=== PATIENT | female | born 2000 | race African-American/Black ===

== ENCOUNTER 2021-08-23 01:33 | Emergency (ER) | payer MEDICAID ==
[~2021-08-23] VITALS: Ht 167.6 cm; Wt 82.0 kg
[2021-08-23 01:44] VITALS: BP 109/45
== END 2021-08-23 02:50 | disposition home or self-care (01) ==
LOC: ER 01:33
DX: R43.0 Anosmia (principal); Z87.81 Personal history of (healed) traumatic fracture; Z20.822 Contact with and (suspected) exposure to COVID-19
CPT/HCPCS: 87426; 99283

== ENCOUNTER 2022-01-29 22:26 | Emergency (ER) | payer MEDICAID ==
[~2022-01-29] VITALS: Ht 165.1 cm; Wt 76.0 kg
[2022-01-29 23:21] VITALS: BP 110/59
[2022-02-07] MEDS ORDERED: DIF15 MT (00:40)
== END 2022-01-30 04:44 | disposition left against medical advice (07) ==
LOC: ER 22:40
DX: R10.9 Unspecified abdominal pain (principal); Z53.21 Procedure and treatment not carried out due to patient leaving prior to being seen by health care provider

== ENCOUNTER 2022-02-05 20:54 | Emergency (ER) | payer MEDICAID ==
[~2022-02-05] VITALS: Ht 165.1 cm; Wt 74.5 kg
[2022-02-05 21:12] VITALS: BP 128/75
[2022-02-06 03:39] LABS: CLARITY URINE CLOUDY (CLEAR); COLOR URINE YELLOW (YELLOW); KETONES URINE 1+ (NEGATIVE); LEUKOCYTE ESTERASE URINE 3+ (NEGATIVE); NITRITE URINE NEGATIVE (NEGATIVE); OCCULT BLOOD URINE NEGATIVE (NEGATIVE); PROTEIN URINE TRACE (NEGATIVE); SPECIFIC GRAVITY URINE 1.024 (1.005-1.030)
[2022-02-06] MEDS ORDERED: NITR-87 MT (03:55)
[2022-02-07] MEDS ORDERED: DIF15 MT (00:40)
[2022-02-08 07:08] LABS: NEISSERIA GONORRHOEAE NAA Negative (Negative)
== END 2022-02-06 03:26 | disposition home or self-care (01) ==
LOC: ER 20:54
DX: N39.0 Urinary tract infection, site not specified (principal); Z98.890 Other specified postprocedural states
CPT/HCPCS: 81003; 81025; 87210; 87491; 87591; 99284

== ENCOUNTER 2023-07-05 12:36 | Emergency (ER) | payer MEDICAID, OTHER ==
[~2023-07-05] VITALS: Ht 165.1 cm; Wt 78.0 kg
[~2023-07-05 12:36] MED LIST: DIF15 MT; NITR-87 MT
[2023-07-05 12:39] VITALS: O2SAT 100
[2023-07-05 13:18] LABS: CLARITY URINE CLEAR (CLEAR); COLOR URINE YELLOW (YELLOW); GLUCOSE URINE NEGATIVE (NEGATIVE); KETONES URINE NEGATIVE (NEGATIVE); LEUKOCYTE ESTERASE URINE 2+ (NEGATIVE); NITRITE URINE NEGATIVE (NEGATIVE); OCCULT BLOOD URINE NEGATIVE (NEGATIVE); PROTEIN URINE NEGATIVE (NEGATIVE); SPECIFIC GRAVITY URINE 1.025 (1.005-1.030); UROBILINOGEN URINE 0.2 E.U./dL (0.2-1.0)
[2023-07-05 13:52] LABS: MUCUS URINE 1+ /lpf (< = 2+); SQUAMOUS EPITHELIAL CELL URINE 2+ /lpf (RARE/1+)
[2023-07-05 13:53] LABS: WBC URINE 0-2 /hpf (0-2)
[2023-07-05 13:54] LABS: BACTERIA URINE 2+; RBC URINE 0-2 /hpf (0-2)
[2023-07-05 17:30] VITALS: BP 119/75; PULSE 86; RESP 16; TEMP 98.5
== END 2023-07-05 17:46 | disposition home or self-care (01) ==
LOC: ER 12:36
DX: O26.891 Other specified pregnancy related conditions, first trimester (principal); Z87.440 Personal history of urinary (tract) infections; Z3A.12 12 weeks gestation of pregnancy
CPT/HCPCS: 76801; 81003; 81025; 99284